=== PATIENT | male | born 1955 | race Caucasian/White ===

== ENCOUNTER 2020-05-29 00:10 | Inpatient (IN) | payer BC ==
[2020-05-29 01:09] LABS: Hemoglobin 15.2 g/dL (14.0-18.0); Mean Corpuscular HGB CONC 34.4 g/dL (32.0-36.0); Mean Corpuscular Hemoglobin 30.4 pg (27.0-31.0); Mean Corpuscular Volume 88.3 fL (78.0-98.0); Mean Platelet Volume 7.5 fL (7.4-10.4); Platelet Count 181 thou/uL (130-400); RBC Distribution Width 12.1 % (11.5-14.5); Red Blood Cell (RBC) Count 5.01 mill/uL (4.70-6.10); White Blood Cell (WBC) Count 16.2 thou/uL (4.8-10.8)
[2020-05-29] MEDS ORDERED: Acetaminophen 500 MG TAB ONE (01:13)
[2020-05-29 01:30] LABS: ALT (SGPT) 37 U/L (8-55); AST (SGOT) 35 U/L (5-34); Albumin 3.5 g/dL (3.4-4.8); Alkaline Phosphatase 58 U/L (40-110); Anion Gap 17 mmol/L (10-20); BUN (Urea Nitrogen) 22 mg/dL (8.4-25.7); Bilirubin, Total 0.5 mg/dL (0.2-1.2); Calc. Creatinine Clearance 0 mL/min (70-130); Calcium 8.4 mg/dL (7.8-10.44); Carbon Dioxide 21 mmol/L (23-31); Chloride 100 mmol/L (98-107); Globulin 3.4 g/dL (2.4-3.5); Glucose 165 mg/dL (80-115); Potassium 4.3 mmol/L (3.5-5.1); Protein, Total 6.9 g/dL (5.8-8.1); Sodium 134 mmol/L (136-145)
[2020-05-29 01:32] LABS: Band 19 % (5-11); MDiff Complete? YES; Monocytes 4 % (0-10); Neutrophil 77 % (42-75); Platelet Morphology Comment Appears Adequate; RBC Morphology Normal
[2020-05-29] MEDS ORDERED: Bisacodyl 5 MG TAB PO PRN (03:21)
[2020-05-29] MEDS ORDERED: Ondansetron PF 4 MG/2 ML Vial IVP PRN (03:21)
[2020-05-29] MEDS ORDERED: Senokot S 8.6-50 MG TAB PO PRN (03:21)
[2020-05-29] MEDS ORDERED: Ondansetron ODT 4 MG TAB PO PRN (03:21)
[2020-05-29] MEDS ORDERED: Dextrose 5% in Water 1,000 ML IV PRN (03:28)
[2020-05-29] MEDS ORDERED: HumaLOG 300 UNITS/3 ML VIAL SC PRN ×2 (03:28)
[2020-05-29] MEDS ORDERED: Dextrose 50% Abboject 50 ML SYRINGE SLOW IVP PRN (03:28)
[2020-05-29 03:59] VITALS: BMI 30.3
--- NOTE | 2020-05-29 04:20 | HP ---
PCP: None. CHIEF COMPLAINT: Fever and chills. HISTORY OF PRESENT ILLNESS: The patient is a 65-year-old male with a past medical history significant for hypertension, diabetes type 2, and recent COVID diagnosis who presents to the emergency department as a transfer via EMS from a free- standing ER in [place]. The patient reports that he is originally diagnosed last Monday05/23/2020, with COVID pneumonia at [facility] here in [facility]. His original symptoms were loss of smell along with general fatigue. He reports that he started to develop fever, chills, body aches, and felt a little short of breath today, so he went to the local [facility] again. Apparently, he was told that he was "fine" and should just go home. The patient disagreed with that assessment, so he drove himself to [place] for a second opinion. There at a free-standing ER, the patient had a documented SpO2 saturation of 88% (one time) with stable vital signs. He had a CT of his chest which was negative for PE and consistent with ground-glass opacities representing COVID pneumonia. The patient was given steroids, remdesivir, monoclonal antibodies, Rocephin, azithromycin, and transferred to our facility for further care. The patient denies any chest pain, heart palpitations, or lightheadedness. He denies any abdominal pain, nausea, vomiting, or diarrhea. He denies any urinary symptoms. In our ER, the patient presented febrile with a temperature of 101.4 with normal blood pressure, pulse, respirations. He was 97% on room air. The patient had a documented WBC count of 16.2 and bandemia. Lactic acid 1.6. He will be admitted for further evaluation. PAST MEDICAL HISTORY: 1. Hypertension. 2. Diabetes type 2. PAST SURGICAL HISTORY: Left knee surgery. SOCIAL HISTORY: The patient lives with his family. Drinks alcohol socially. Has no history of tobacco or illicit drug use. He works as a salesman. He is independently functioning. FAMILY HISTORY: Noncontributory to this case. ALLERGIES: NO KNOWN DRUG ALLERGIES. HOME MEDICATIONS: 1. Invokana, unknown dose. 2. Albuterol inhaler. 3. Zofran, unknown dose p.r.n. 4. Prednisone, unknown dose. 5. Tessalon Perles, unknown dose. 6. Promethazine p.r.n., unknown dose. 7. Sudafed, unknown dose. REVIEW OF SYSTEMS: All review of systems are negative unless otherwise stated in the HPI. PHYSICAL EXAMINATION: VITAL SIGNS: Temperature 99.7, blood pressure 132/78, pulse 76, respirations 18, nonlabored, 98% on room air. CONSTITUTIONAL: The patient appears comfortable, nontoxic, able to speak in full sentences. Resting comfortably in the stretcher. HEAD: Atraumatic and normocephalic. EYES: PERRLA. Extraocular muscles intact. Sclerae nonicteric. ENT: Bilateral EACs are clear. Tympanic membranes intact. Nares are clear and patent. Oropharynx is clear. Uvula midline. Moist mucous membranes. No oral lesions. NECK: Full range of motion. No cervical spinous tenderness. No cervical adenopathy. RESPIRATORY/CHEST: Respirations even and nonlabored. Clear to auscultation. No rhonchi, wheezes, or rales. CARDIOVASCULAR: S1, S2 appreciated. No murmurs, rubs, or gallops. ABDOMEN: Soft, nontender, nondistended. Active bowel sounds. No guarding. No rigidity. No rebound tenderness. BACK: Full range of motion. No central spinous tenderness. No CVA tenderness. EXTREMITIES: Upper extremities; full range of motion, normal strength, sensation intact. Palpable radial pulses. Lower extremities; full range of motion, normal strength, sensation intact. Palpable pedal pulses. NEUROLOGIC: GCS of 15. No focal motor deficits. PSYCH: Denies SI/HI. A and O x4. LABS AND DIAGNOSTICS: The patient had a CTA of chest, which was negative for pulmonary embolism. There are ground-glass opacities consistent with COVID pneumonia. WBC 16.2, bands 19, lactic acid 1.6. IMPRESSION: 1. Acute respiratory failure with hypoxia. 2. Pneumonia due to COVID-19 virus. 3. Leukocytosis with bandemia. 4. Hypertension. 5. Diabetes type 2. PLAN: Upon assessment, the patient had stable vital signs and was 97% to 98% on room air. There was one documented SpO2 reading of 88% from the free-standing ER in [place]. In [place], the patient was given steroids, remdesivir, and a monoclonal antibody along with IV antibiotics. I discussed with the patient in great detail the indication for steroids and antivirals with COVID-19 pneumonia. We agreed to monitor him through the morning and see if he becomes hypoxic during his stay here. We will continue Rocephin and azithromycin. Isolation precautions. Consult Infectious Disease to determine further clinical course. Start zinc, vitamin C, and vitamin D. Supplemental oxygen as needed. We will check acute phase reactants. We will start moderate intermittent sliding scale along with Accu-Cheks a.c. and h.s. Lovenox for DVT prophylaxis. Pepcid for GI prophylaxis. Code status is full code. Discussed the case with the attending physician, Dr. Garcia. Job ID: [id number] MTDD
[2020-05-29 06:08] LABS: #Lymphocytes 0.8 thou/uL (1.20-3.40); #Monocytes 1.3 thou/uL (0.11-0.59); %Basophils 0.2 % (0.0-1.0); %Eosinophils 0.1 % (0.0-10.0); %Lymphocytes 5.4 % (21.0-51.0); %Monocytes 8.5 % (0.0-10.0); %Neutrophils 85.8 % (42.0-75.0); Mean Corpuscular HGB CONC 33.2 g/dL (32.0-36.0); Mean Corpuscular Hemoglobin 29.7 pg (27.0-31.0); Mean Corpuscular Volume 89.5 fL (78.0-98.0); Mean Platelet Volume 7.5 fL (7.4-10.4); Platelet Count 182 thou/uL (130-400); RBC Distribution Width 12.2 % (11.5-14.5); Red Blood Cell (RBC) Count 5.03 mill/uL (4.70-6.10); White Blood Cell (WBC) Count 15.1 thou/uL (4.8-10.8)
[2020-05-29 06:32] LABS: Anion Gap 16 mmol/L (10-20); BUN (Urea Nitrogen) 24 mg/dL (8.4-25.7); Calc. Creatinine Clearance 94 mL/min (70-130); Calcium 8.5 mg/dL (7.8-10.44); Carbon Dioxide 23 mmol/L (23-31); Chloride 100 mmol/L (98-107); Glucose 139 mg/dL (80-115); Potassium 4.3 mmol/L (3.5-5.1); Sodium 135 mmol/L (136-145)
[2020-05-29] MEDS: Ascorbic Acid 500 mg Chewable Tablet PO SCH (07:57)
[2020-05-29] MEDS: Cholecalciferol 1,000 UNITS (25 MCG) TAB PO SCH (07:57)
[2020-05-29] MEDS: Famotidine 20 MG TAB PO SCH ×2 (07:58→19:58)
[2020-05-29] MEDS: Enoxaparin Sodium 40 MG/0.4 ML SYRINGE SC SCH ×2 (07:58→19:58)
[2020-05-29] MEDS: Famotidine/PF 20 mg/2ml Vial SLOW IVP SCH ×2 (07:58→19:55)
[2020-05-29] MEDS: Zinc Sulfate 220 MG CAP PO SCH (07:58)
[2020-05-29 10:32] LABS: Bacteria/HPF None Seen HPF (None Seen); Bilirubin Negative (Negative); Blood, Urine 1+ (Negative); Clarity Clear (Clear); Glucose, Urine (Dipstick) Greater than 1000 mg/dL (Negative); Ketone, Urine 20 mg/dL (Negative); Leukocyte Negative Leu/uL (Negative); Nitrite Negative (Negative); Protein, Urine (Dipstick) 30 mg/dL (Neg-Trace); Specific Gravity, Urine 1.047 (1.002-1.036); Squamous Epithelial 0-3 HPF (0-3); Urobilinogen Normal mg/dL (Less than 2); WBC/HPF 0-3 HPF (0-3); pH, Urine 5.5 (5.0-9.0)
[2020-05-29] MEDS: cefTRIAXone\\ROCEPHIN 1 GM in Sodium Chloride 0.9% 100 ML IVPB SCH (11:16)
[2020-05-29] MEDS: Azithromycin 500 MG in Sodium Chloride 0.9% 250 ML 250 ML IVPB SCH (11:17)
--- NOTE | 2020-05-29 15:24 | PDOC.HOSPP ---
- Subjective Encounter Date: 05/29/20 Encounter Time: 10:10 Subjective: Patient is resting he has some cough ongoing otherwise he he is comfortable this morning. - Objective Vital Signs & Weight: Vital Signs (12 hours) Temp Pulse Resp BP BP Pulse Ox 05/29/20 11:52 98.0 F 63 20 142/76 H 92 L 05/29/20 08:10 97.6 F 60 18 118/70 92 L Weight Weight 249 lb 1.957 oz Result Diagrams: 05/29/20 05:54 05/29/20 05:54 Additional Labs: Accuchecks 05/29/20 06:20 POC Glucose 145 H Hospitalist ROS - Medication Medications: Active Medications Generic Name Dose Route Start Last Admin Trade Name Freq PRN Reason Stop Dose Admin Ascorbic Acid 1,000 mg 05/29/20 09:00 05/29/20 07:57 Ascorbic Acid 500 Mg Chewable Tablet PO 1,000 mg DAILY WILMER Administration Cholecalciferol 5,000 units 05/29/20 09:00 05/29/20 07:57 Cholecalciferol 1,000 Units (25 Mcg) Tab PO 5,000 units DAILY WILMER Administration Enoxaparin Sodium 40 mg 05/29/20 09:00 05/29/20 07:58 Enoxaparin Sodium 40 Mg/0.4 Ml Syringe SC 40 mg 899,2099 WILMER Administration Famotidine 20 mg 05/29/20 09:00 05/29/20 07:58 Famotidine 20 Mg Tab PO 20 mg BID WILMER Administration Famotidine 20 mg 05/29/20 09:00 05/29/20 07:58 Famotidine/Pf 20 Mg/2ml Vial SLOW IVP Not Given Q12HR WILMER Azithromycin 500 mg/ Sodium 250 mls @ 250 mls/hr 05/29/20 12:00 05/29/20 11:17 Chloride IVPB 250 mls Q24HR WILMER Administration Ceftriaxone Sodium 1 gm/ 100 mls @ 200 mls/hr 05/29/20 12:00 05/29/20 11:16 Sodium Chloride IVPB 100 mls Q24HR WILMER Administration Zinc Sulfate 220 mg 05/29/20 09:00 05/29/20 07:58 Zinc Sulfate 220 Mg Cap PO 220 mg DAILY WILMER Administration - Exam General Appearance: NAD, awake alert Eye: PERRL ENT: normocephalic atraumatic Neck: supple Heart: RRR, normal peripheral pulses Respiratory: CTAB, normal chest expansion Gastrointestinal: soft, normal bowel sounds Psychiatric: A&O x 3 Hosp A/P - Plan COVID-pneumonia -Hypoxia with acute respiratory failure secondary to Covid pneumonia Continue with the Decadron vitamin C and daily as well as Lovenox. Ceftriaxone and Zithromax. --Inflammatory markers are still on the high end. --Sats are still on the low end with a 92% Leukocytosis -Likely due to above Diabetes mellitus '-Sliding scale insulin.
[2020-05-29] MEDS: Guaifenesin DM 100-10/5 ML UDCUP PO PRN ×2 (17:41→23:16)
[2020-05-29] MEDS ORDERED: REMDESIVIR (EUA) 200 MG in Sodium Chloride 0.9% 250 ML 210 ML IV SCH (18:00)
[2020-05-29] MEDS: REMDESIVIR (EUA) 100 MG in Sodium Chloride 0.9% 250 ML 230 ML IV SCH (18:35)
[2020-05-30] MEDS ORDERED: Albuterol 200 PUFF (6.7GM INHALER) INH PRN (05:30)
[2020-05-30] MEDS: Albuterol 200 PUFF (6.7GM INHALER) INH SCH ×5 (06:02→22:17)
[2020-05-30] MEDS: Zinc Sulfate 220 MG CAP PO SCH (09:00)
[2020-05-30] MEDS: Famotidine/PF 20 mg/2ml Vial SLOW IVP SCH (09:00)
[2020-05-30] MEDS: Famotidine 20 MG TAB PO SCH ×2 (09:01→19:48)
[2020-05-30] MEDS: Enoxaparin Sodium 40 MG/0.4 ML SYRINGE SC SCH ×2 (09:01→19:48)
[2020-05-30] MEDS: Cholecalciferol 1,000 UNITS (25 MCG) TAB PO SCH (09:01)
[2020-05-30] MEDS: Ascorbic Acid 500 mg Chewable Tablet PO SCH (09:01)
[2020-05-30] MEDS: Azithromycin 500 MG in Sodium Chloride 0.9% 250 ML 250 ML IVPB SCH (12:04)
[2020-05-30] MEDS: cefTRIAXone\\ROCEPHIN 1 GM in Sodium Chloride 0.9% 100 ML IVPB SCH (12:04)
[2020-05-30] MEDS: Guaifenesin DM 100-10/5 ML UDCUP PO PRN ×3 (15:29→23:41)
[2020-05-30] MEDS: REMDESIVIR (EUA) 100 MG in Sodium Chloride 0.9% 250 ML 230 ML IV SCH (17:37)
[2020-05-30] MEDS ORDERED: REMDESIVIR (EUA) 100 MG in Sodium Chloride 0.9% 250 ML 230 ML IV SCH (18:00)
--- NOTE | 2020-05-30 18:23 | PDOC.HOSPP ---
- Subjective Encounter Date: 05/30/20 Encounter Time: 18:20 Subjective: f/u for COVID PNA on O2 @ 3L/min NC/Rocephin/Zithromax/Vit C/Zinc/Albuterol/Remdesivir. Still weak and coughing. - Objective Vital Signs & Weight: Vital Signs (12 hours) Temp Pulse Resp BP BP Pulse Ox 05/30/20 16:13 98.5 F 73 18 151/77 H 91 L 05/30/20 11:44 98.3 F 68 18 157/76 H 92 L 05/30/20 08:25 94 L 05/30/20 08:00 98 F 62 18 160/80 H 93 L 05/30/20 07:28 98.2 F 62 18 160/80 H 90 L Weight Weight 249 lb 1.9 oz I&O: 05/29/20 05/30/20 05/31/20 06:59 06:59 06:59 Intake Total 2079 Balance 2079 Result Diagrams: 05/29/20 05:54 05/29/20 05:54 Additional Labs: Accuchecks 05/30/20 05/29/20 04:47 19:57 POC Glucose 134 H 142 H Microbiology 05/29/20 00:55 Venous blood - Right Arm Blood Culture - Preliminary Specimen has been received and culture in progress. No Growth to date. 05/29/20 00:55 Venous blood - Left Hand Blood Culture - Preliminary Specimen has been received and culture in progress. No Growth to date. Laboratory Tests 05/29/20 05/29/20 05/29/20 00:55 05:54 05:54 WBC 16.2 H Neutrophils % 85.8 H Neutrophils % (Manual) 77 H D-Dimer Ferritin C-Reactive Protein 22.99 H 05/29/20 05/29/20 05:54 05:54 WBC Neutrophils % Neutrophils % (Manual) D-Dimer 1.01 H Ferritin 548.41 H C-Reactive Protein Hospitalist ROS - Medication Medications: Active Medications Generic Name Dose Route Start Last Admin Trade Name Freq PRN Reason Stop Dose Admin Albuterol Sulfate 2 puff 05/30/20 06:30 05/30/20 17:15 Albuterol 200 Puff (6.7gm Inhaler) INH 2 puff [id number] WILMER Administration Ascorbic Acid 1,000 mg 05/29/20 09:00 05/30/20 09:01 Ascorbic Acid 500 Mg Chewable Tablet PO 1,000 mg DAILY WILMER Administration Cholecalciferol 5,000 units 05/29/20 09:00 05/30/20 09:01 Cholecalciferol 1,000 Units (25 Mcg) Tab PO 5,000 units DAILY WILMER Administration Enoxaparin Sodium 40 mg 05/29/20 09:00 05/30/20 09:01 Enoxaparin Sodium 40 Mg/0.4 Ml Syringe SC 40 mg 899,2099 WILMER Administration Famotidine 20 mg 05/29/20 09:00 05/30/20 09:01 Famotidine 20 Mg Tab PO 20 mg BID WILMER Administration Famotidine 20 mg 05/29/20 09:00 05/30/20 09:00 Famotidine/Pf 20 Mg/2ml Vial SLOW IVP Not Given Q12HR WILMER Guaifenesin/Dextromethorphan 15 ml 05/29/20 03:21 05/30/20 15:29 Guaifenesin Dm 100-10/5 Ml Udcup PO 15 ml Q4H PRN Administration Cough Azithromycin 500 mg/ Sodium 250 mls @ 250 mls/hr 05/29/20 12:00 05/30/20 12:04 Chloride IVPB 250 mls Q24HR WILMER Administration Ceftriaxone Sodium 1 gm/ 100 mls @ 200 mls/hr 05/29/20 12:00 05/30/20 12:04 Sodium Chloride IVPB 100 mls Q24HR WILMER Administration Remdesivir 100 mg/ Sodium 250 mls @ 250 mls/hr 05/29/20 18:00 05/30/20 17:37 Chloride IV 06/01/20 18:59 250 mls 1800 WILMER Administration Zinc Sulfate 220 mg 05/29/20 09:00 05/30/20 09:00 Zinc Sulfate 220 Mg Cap PO 220 mg DAILY WILMER Administration - Exam General Appearance: NAD, awake alert Eye: PERRL, anicteric sclera ENT: normocephalic atraumatic, no oropharyngeal lesions Neck: supple, symmetric, no JVD, no thyromegaly Heart: RRR, no murmur, no gallops, no rubs, normal peripheral pulses Heart - other findings: S1, S2 Respiratory: tachypneic Respiratory - other findings: few scattered rhonchi Gastrointestinal: soft, non-tender, non-distended, normal bowel sounds, no palpable masses, no hepatomegaly Extremities: no cyanosis, no clubbing, no edema Skin: normal turgor, no lesions Neurological: cranial nerve grossly intact, no new deficit Musculoskeletal: normal tone, normal strength, no muscle wasting Psychiatric: normal affect, A&O x 3 Hosp A/P (1) Pneumonia due to COVID-19 virus Code(s): U07.1 - COVID-19; J12.89 - OTHER VIRAL PNEUMONIA Status: Acute Plan: Continue Rocephin/Zithromax/Dexamethasone/Vit C/Zinc/O2 supplementation/Lovenox (2) Acute respiratory failure with hypoxia Code(s): J96.01 - ACUTE RESPIRATORY FAILURE WITH HYPOXIA Status: Acute Plan: Continue O2 supplementation, may need home O2 (3) DM II (diabetes mellitus, type II), controlled Code(s): E11.9 - TYPE 2 DIABETES MELLITUS WITHOUT COMPLICATIONS Status: Chronic Plan: Resume home DM regimen, ISS, ADA, serial accuchecks (4) HTN (hypertension) Code(s): I10 - ESSENTIAL (PRIMARY) HYPERTENSION Status: Chronic Qualifiers: Hypertension type: essential hypertension Qualified Code(s): I10 - Essent ial (primary) hypertension Plan: Resume home BP regimen, serial monitoring - Plan plan discussed w/ family, continue antibiotics, respiratory therapy, out of bed/ambulate, DVT proph w/SCDs Stable currently Continue Rocephin/Zithromax Add Dexamethasone 8mg IV daily O2 supplementation, may need home O2 Add Florastor 250mg daily Continue Albuterol MDI AM lab: Ferritin, CRP, D-dimer
[2020-05-30] MEDS ORDERED: Zolpidem Tartrate 5 MG TAB PO PRN (19:00)
[2020-05-30] MEDS ORDERED: Dexamethasone 4 mg/ml Vial SLOW IVP SCH (19:15)
[2020-05-31] MEDS: Benzonatate 100 MG CAP PO PRN ×4 (01:00→20:12)
[2020-05-31] MEDS: Albuterol 200 PUFF (6.7GM INHALER) INH SCH ×6 (01:46→22:41)
[2020-05-31] MEDS: Guaifenesin DM 100-10/5 ML UDCUP PO PRN ×3 (05:23→20:12)
[2020-05-31] MEDS: metFORMIN 500 MG TAB PO SCH (07:56)
[2020-05-31] MEDS: Alogliptin 25 MG TAB PO SCH (07:56)
[2020-05-31] MEDS: Ascorbic Acid 500 mg Chewable Tablet PO SCH (07:57)
[2020-05-31] MEDS: Empagliflozin 10 MG TAB PO SCH (07:57)
[2020-05-31] MEDS: Ramipril 5 MG CAP PO SCH (07:57)
[2020-05-31] MEDS: Cholecalciferol 1,000 UNITS (25 MCG) TAB PO SCH (07:57)
[2020-05-31] MEDS: Dexamethasone 4 mg/ml Vial SLOW IVP SCH (07:58)
[2020-05-31] MEDS: Zinc Sulfate 220 MG CAP PO SCH (07:58)
[2020-05-31] MEDS: Famotidine 20 MG TAB PO SCH ×2 (07:58→20:12)
[2020-05-31] MEDS: Enoxaparin Sodium 40 MG/0.4 ML SYRINGE SC SCH ×2 (07:58→20:12)
[2020-05-31] MEDS: Saccharomyces boulardii 250 MG CAP PO SCH (07:58)
[2020-05-31] MEDS ORDERED: Rosuvastatin 20 MG TAB PO SCH (09:00)
[2020-05-31] MEDS: cefTRIAXone\\ROCEPHIN 1 GM in Sodium Chloride 0.9% 100 ML IVPB SCH (12:18)
[2020-05-31] MEDS: Azithromycin 500 MG in Sodium Chloride 0.9% 250 ML 250 ML IVPB SCH (12:51)
--- NOTE | 2020-05-31 13:27 | PDOC.HOSPP ---
- Subjective Encounter Date: 05/31/20 Encounter Time: 13:25 Subjective: f/u COVID PNA receiving O2 2-3L/min NC/Remdesivir/Zithromax/Rocephin/Vit C/Zinc/Lovenox/Albuterol. SOB with mild activity. - Objective Vital Signs & Weight: Vital Signs (12 hours) Temp Pulse Resp BP BP 05/31/20 11:24 97.7 F 63 18 126/75 05/31/20 07:57 160/80 H 05/31/20 07:21 97.7 F 60 18 178/90 H Weight Weight 249 lb 1.9 oz I&O: 05/30/20 05/31/20 06/01/20 06:59 06:59 06:59 Intake Total 2079 Balance 2079 Result Diagrams: 05/29/20 05:54 05/29/20 05:54 Additional Labs: Accuchecks 05/31/20 05/30/20 05/30/20 05:28 22:04 19:57 POC Glucose 220 H 208 H 194 H Microbiology 05/29/20 00:55 Venous blood - Right Arm Blood Culture - Preliminary Specimen has been received and culture in progress. No Growth to date. 05/29/20 00:55 Venous blood - Left Hand Blood Culture - Preliminary Specimen has been received and culture in progress. No Growth to date. Laboratory Tests 05/29/20 05/29/20 05/29/20 00:55 05:54 05:54 WBC 16.2 H Neutrophils % 85.8 H Neutrophils % (Manual) 77 H D-Dimer Ferritin C-Reactive Protein 22.99 H 05/29/20 05/29/20 05/31/20 05:54 05:54 05:45 WBC Neutrophils % Neutrophils % (Manual) D-Dimer 1.01 H Ferritin 548.41 H 857.81 H C-Reactive Protein 05/31/20 05/31/20 05:45 05:46 WBC Neutrophils % Neutrophils % (Manual) D-Dimer 0.91 H Ferritin C-Reactive Protein 21.60 H Hospitalist ROS - Medication Medications: Active Medications Generic Name Dose Route Start Last Admin Trade Name Freq PRN Reason Stop Dose Admin Albuterol Sulfate 2 puff 05/30/20 06:30 05/31/20 09:39 Albuterol 200 Puff (6.7gm Inhaler) INH 2 puff [id number] WILMER Administration Alogliptin Benzoate 25 mg 05/31/20 09:00 05/31/20 07:56 Alogliptin 25 Mg Tab PO 25 mg DAILY WILMER Administration Ascorbic Acid 1,000 mg 05/29/20 09:00 05/31/20 07:57 Ascorbic Acid 500 Mg Chewable Tablet PO 1,000 mg DAILY WILMER Administration Benzonatate 100 mg 05/31/20 00:54 05/31/20 12:18 Benzonatate 100 Mg Cap PO 100 mg Q6H PRN Administration Cough Cholecalciferol 5,000 units 05/29/20 09:00 05/31/20 07:57 Cholecalciferol 1,000 Units (25 Mcg) Tab PO 5,000 units DAILY WILMER Administration Dexamethasone 8 mg 05/31/20 09:00 05/31/20 07:58 Dexamethasone 4 Mg/Ml Vial SLOW IVP 8 mg DAILY WILMER Administration Enoxaparin Sodium 40 mg 05/29/20 09:00 05/31/20 07:58 Enoxaparin Sodium 40 Mg/0.4 Ml Syringe SC 40 mg 899,2099 WILMER Administration Famotidine 20 mg 05/29/20 09:00 05/31/20 07:58 Famotidine 20 Mg Tab PO 20 mg BID WILMER Administration Guaifenesin/Dextromethorphan 15 ml 05/29/20 03:21 05/31/20 13:19 Guaifenesin Dm 100-10/5 Ml Udcup PO 15 ml Q4H PRN Administration Cough Azithromycin 500 mg/ Sodium 250 mls @ 250 mls/hr 05/29/20 12:00 05/31/20 12:51 Chloride IVPB 250 mls Q24HR WILMER Administration Ceftriaxone Sodium 1 gm/ 100 mls @ 200 mls/hr 05/29/20 12:00 05/31/20 12:18 Sodium Chloride IVPB 100 mls Q24HR WILMER Administration Remdesivir 100 mg/ Sodium 250 mls @ 250 mls/hr 05/29/20 18:00 05/30/20 17:37 Chloride IV 06/01/20 18:59 250 mls 1800 WILMER Administration Insulin Human Lispro 0 units 05/29/20 03:28 05/31/20 05:52 Humalog 300 Units/3 Ml Vial SC 4 unit .MODERATE SLIDING SC PRN Administration Moderate Correctional Scale Metformin HCl 2,000 mg 05/31/20 08:00 05/31/20 07:56 Metformin 500 Mg Tab PO 2,000 mg QAM-WM WILMER Administration Miscellaneous Medication 10 mg 05/31/20 09:00 05/31/20 07:57 Empagliflozin 10 Mg Tab PO 10 mg DAILY WILMER Administration Ramipril 10 mg 05/31/20 09:00 05/31/20 07:57 Ramipril 5 Mg Cap PO 10 mg DAILY WILMER Administration Saccharomyces Boulardii 250 mg 05/31/20 09:00 05/31/20 07:58 Saccharomyces Boulardii 250 Mg Cap PO 250 mg DAILY WILMER Administration Zinc Sulfate 220 mg 05/29/20 09:00 05/31/20 07:58 Zinc Sulfate 220 Mg Cap PO 220 mg DAILY WILMER Administration Zolpidem Tartrate 5 mg 05/30/20 19:00 05/30/20 23:42 Zolpidem Tartrate 5 Mg Tab PO 5 mg HSPRN PRN Administration Insomnia - Exam General Appearance: NAD, awake alert Eye: PERRL, anicteric sclera ENT: normocephalic atraumatic, no oropharyngeal lesions Neck: supple, symmetric, no JVD, no thyromegaly, no lymphadenopathy Heart: RRR, no murmur, no gallops, no rubs, normal peripheral pulses Heart - other findings: S1, S2 Respiratory: no tachypnea Respiratory - other findings: few scattered rhonchi Gastrointestinal: soft, non-tender, non-distended, normal bowel sounds, no palpable masses Extremities: no cyanosis, no clubbing, no edema Skin: normal turgor, no lesions Neurological: cranial nerve grossly intact, no new deficit Musculoskeletal: normal tone, normal strength, no muscle wasting Psychiatric: normal affect, A&O x 3 Hosp A/P (1) Pneumonia due to COVID-19 virus Code(s): U07.1 - COVID-19; J12.89 - OTHER VIRAL PNEUMONIA Status: Acute Plan: Continue Remdesivir/Zithromax/Rocephin/Dexamethasone/Lovenox/Vit C/Zinc (2) Acute respiratory failure with hypoxia Code(s): J96.01 - ACUTE RESPIRATORY FAILURE WITH HYPOXIA Status: Acute Plan: Continue O2 supplementation, may need home O2 (3) DM II (diabetes mellitus, type II), controlled Code(s): E11.9 - TYPE 2 DIABETES MELLITUS WITHOUT COMPLICATIONS Status: Chronic Plan: ISS, continue home DM regimen, ADA (4) HTN (hypertension) Code(s): I10 - ESSENTIAL (PRIMARY) HYPERTENSION Status: Chronic Qualifiers: Hypertension type: essential hypertension Qualified Code(s): I10 - Essent ial (primary) hypertension - Plan continue antibiotics, social science research assistant, respiratory therapy, out of bed/ambulate, DVT proph w/SCDs Stable currently Continue Rocephin/Zithromax Add Dexamethasone 8mg IV daily O2 supplementation, may need home O2 Add Florastor 250mg daily Continue Albuterol MDI AM lab: Ferritin, CRP, D-dimer
[2020-05-31] MEDS ORDERED: Promethazine DM 6.25-15mg/5ml 120 ML BOT PO PRN (14:23)
[2020-05-31] MEDS ORDERED: Ibuprofen 200 MG TAB PO PRN (17:11)
[2020-05-31] MEDS: REMDESIVIR (EUA) 100 MG in Sodium Chloride 0.9% 250 ML 230 ML IV SCH (19:47)
[2020-06-01] MEDS: Guaifenesin DM 100-10/5 ML UDCUP PO PRN ×5 (01:10→21:45)
[2020-06-01] MEDS: Albuterol 200 PUFF (6.7GM INHALER) INH SCH ×6 (01:20→21:36)
[2020-06-01] MEDS: Benzonatate 100 MG CAP PO PRN ×3 (05:16→19:04)
[2020-06-01] MEDS: Enoxaparin Sodium 40 MG/0.4 ML SYRINGE SC SCH ×2 (08:50→21:35)
[2020-06-01] MEDS: Empagliflozin 10 MG TAB PO SCH (08:50)
[2020-06-01] MEDS: Ramipril 5 MG CAP PO SCH (08:50)
[2020-06-01] MEDS: Alogliptin 25 MG TAB PO SCH (08:51)
[2020-06-01] MEDS: metFORMIN 500 MG TAB PO SCH (08:51)
[2020-06-01] MEDS: Famotidine 20 MG TAB PO SCH ×2 (08:51→21:35)
[2020-06-01] MEDS: Saccharomyces boulardii 250 MG CAP PO SCH (08:51)
[2020-06-01] MEDS: Cholecalciferol 1,000 UNITS (25 MCG) TAB PO SCH (08:51)
[2020-06-01] MEDS: Dexamethasone 4 mg/ml Vial SLOW IVP SCH (08:52)
[2020-06-01] MEDS: Zinc Sulfate 220 MG CAP PO SCH (08:52)
[2020-06-01] MEDS: Ascorbic Acid 500 mg Chewable Tablet PO SCH (08:52)
[2020-06-01] MEDS: Azithromycin 500 MG in Sodium Chloride 0.9% 250 ML 250 ML IVPB SCH (11:42)
[2020-06-01] MEDS: cefTRIAXone\\ROCEPHIN 1 GM in Sodium Chloride 0.9% 100 ML IVPB SCH (13:08)
--- NOTE | 2020-06-01 15:42 | PDOC.HOSPP ---
- Subjective Encounter Date: 06/01/20 Encounter Time: 15:40 Subjective: f/u for COVID PNA with hypoxic resp failure on 3-4L/min NC. Receiving Zithromax/Rocephin/Lovenox/Dexamethasone/Albuterol/Vit C/Zinc. - Objective Vital Signs & Weight: Vital Signs (12 hours) Temp Pulse Resp BP BP Pulse Ox 06/01/20 12:00 98.1 F 73 20 126/72 96 06/01/20 08:00 97.8 F 70 18 153/81 H 93 L 06/01/20 05:00 97.9 F 69 20 145/82 H 93 L Weight Weight 249 lb 1.9 oz I&O: 05/31/20 06/01/20 06/02/20 06:59 06:59 06:59 Intake Total 240 Balance 240 Result Diagrams: 05/29/20 05:54 05/29/20 05:54 Additional Labs: Accuchecks 06/01/20 06/01/20 05/31/20 11:53 05:06 19:55 POC Glucose 166 H 161 H 185 H 05/31/20 05/31/20 05/30/20 16:14 11:23 16:16 POC Glucose 159 H 162 H 143 H 05/30/20 05/29/20 05/29/20 11:43 16:54 10:34 POC Glucose 161 H 109 H 160 H Microbiology 05/29/20 00:55 Venous blood - Right Arm Blood Culture - Preliminary Specimen has been received and culture in progres s. No Growth to date. 05/29/20 00:55 Venous blood - Left Hand Blood Culture - Preliminary Specimen has been received and culture in prog ress. No Growth to date. Laboratory Tests 05/29/20 05/29/20 05/29/20 00:55 05:54 05:54 WBC 16.2 H Neutrophils % 85.8 H Neutrophils % (Manual) 77 H D-Dimer Ferritin C-Reactive Protein 22.99 H 05/29/20 05/29/20 05/31/20 05:54 05:54 05:45 WBC Neutrophils % Neutrophils % (Manual) D-Dimer 1.01 H Ferritin 548.41 H 857.81 H C-Reactive Protein 05/31/20 05/31/20 06/01/20 05:45 05:46 06:22 WBC Neutrophils % Neutrophils % (Manual) D-Dimer 0.91 H Ferritin C-Reactive Protein 21.60 H 13.16 H 06/01/20 06/01/20 06:22 06:22 WBC Neutrophils % Neutrophils % (Manual) D-Dimer 1.15 H Ferritin 769.07 H C-Reactive Protein Hospitalist ROS - Medication Medications: Active Medications Generic Name Dose Route Start Last Admin Trade Name Freq PRN Reason Stop Dose Admin Albuterol Sulfate 2 puff 05/30/20 06:30 06/01/20 14:13 Albuterol 200 Puff (6.7gm Inhaler) INH 2 puff [id number] WILMER Administration Alogliptin Benzoate 25 mg 05/31/20 09:00 06/01/20 08:51 Alogliptin 25 Mg Tab PO 25 mg DAILY WILMER Administration Ascorbic Acid 1,000 mg 05/29/20 09:00 06/01/20 08:52 Ascorbic Acid 500 Mg Chewable Tablet PO 1,000 mg DAILY WILMER Administration Benzonatate 100 mg 05/31/20 00:54 06/01/20 11:44 Benzonatate 100 Mg Cap PO 100 mg Q6H PRN Administration Cough Cholecalciferol 5,000 units 05/29/20 09:00 06/01/20 08:51 Cholecalciferol 1,000 Units (25 Mcg) Tab PO 5,000 units DAILY WILMER Administration Dexamethasone 8 mg 05/31/20 09:00 06/01/20 08:52 Dexamethasone 4 Mg/Ml Vial SLOW IVP 8 mg DAILY WILMER Administration Enoxaparin Sodium 40 mg 05/29/20 09:00 06/01/20 08:50 Enoxaparin Sodium 40 Mg/0.4 Ml Syringe SC 40 mg 09,2099 WILMER Administration Famotidine 20 mg 05/29/20 09:00 06/01/20 08:51 Famotidine 20 Mg Tab PO 20 mg BID WILMER Administration Guaifenesin/Dextromethorphan 15 ml 05/29/20 03:21 06/01/20 14:37 Guaifenesin Dm 100-10/5 Ml Udcup PO 15 ml Q4H PRN Administration Cough Azithromycin 500 mg/ Sodium 250 mls @ 250 mls/hr 05/29/20 12:00 06/01/20 11:42 Chloride IVPB 250 mls Q24HR WILMER Administration Ceftriaxone Sodium 1 gm/ 100 mls @ 200 mls/hr 05/29/20 12:00 06/01/20 13:08 Sodium Chloride IVPB 100 mls Q24HR WILMER Administration Remdesivir 100 mg/ Sodium 250 mls @ 250 mls/hr 05/29/20 18:00 05/31/20 19:47 Chloride IV 06/01/20 18:59 250 mls 1800 WILMER Administration Ibuprofen 600 mg 05/31/20 17:11 05/31/20 17:23 Ibuprofen 200 Mg Tab PO 600 mg Q6H PRN Administration PAIN OR HEADACHE Insulin Human Lispro 0 units 05/29/20 03:28 05/31/20 05:52 Humalog 300 Units/3 Ml Vial SC 4 unit .MODERATE SLIDING SC PRN Administration Moderate Correctional Scale Metformin HCl 2,000 mg 05/31/20 08:00 06/01/20 08:51 Metformin 500 Mg Tab PO 2,000 mg QAM-WM WILMER Administration Miscellaneous Medication 10 mg 05/31/20 09:00 06/01/20 08:50 Empagliflozin 10 Mg Tab PO 10 mg DAILY WILMER Administration Ramipril 10 mg 05/31/20 09:00 06/01/20 08:50 Ramipril 5 Mg Cap PO 10 mg DAILY WILMER Administration Saccharomyces Boulardii 250 mg 05/31/20 09:00 06/01/20 08:51 Saccharomyces Boulardii 250 Mg Cap PO 250 mg DAILY WILMER Administration Sodium Chloride 10 ml 05/29/20 03:21 05/31/20 19:47 Flush - Normal Saline 10 Ml Syringe IVF 10 ml PRN PRN Administration Saline Flush Zinc Sulfate 220 mg 05/29/20 09:00 06/01/20 08:52 Zinc Sulfate 220 Mg Cap PO 220 mg DAILY WILMER Administration Zolpidem Tartrate 5 mg 05/30/20 19:00 05/30/20 23:42 Zolpidem Tartrate 5 Mg Tab PO 5 mg HSPRN PRN Administration Insomnia - Exam General Appearance: NAD, awake alert Eye: PERRL, anicteric sclera ENT: normocephalic atraumatic, no oropharyngeal lesions Neck: supple, symmetric, no JVD, no thyromegaly, no lymphadenopathy Heart: RRR, no gallops, no rubs, normal peripheral pulses Heart - other findings: S1, S2 Respiratory: no wheezes, tachypneic Respiratory - other findings: scattered rhonchi Gastrointestinal: soft, non-tender, non-distended, normal bowel sounds, no palpable masses Extremities: no cyanosis, no clubbing, no edema Skin: normal turgor, no lesions Neurological: cranial nerve grossly intact, no new deficit Musculoskeletal: normal tone, normal strength, no muscle wasting Psychiatric: normal affect, A&O x 3 Hosp A/P (1) Pneumonia due to COVID-19 virus Code(s): U07.1 - COVID-19; J12.89 - OTHER VIRAL PNEUMONIA Status: Acute Plan: Continue Rocephin/Zithromax/Dexamethasone/Remdesivir/Vit C/Zinc/O2 (2) Acute respiratory failure with hypoxia Code(s): J96.01 - ACUTE RESPIRATORY FAILURE WITH HYPOXIA Status: Acute Plan: Continue O2, likely will need home O2 (3) DM II (diabetes mellitus, type II), controlled Code(s): E11.9 - TYPE 2 DIABETES MELLITUS WITHOUT COMPLICATIONS Status: Chronic (4) HTN (hypertension) Code(s): I10 - ESSENTIAL (PRIMARY) HYPERTENSION Status: Chronic Qualifiers: Hypertension type: essential hypertension Qualified Code(s): I10 - Essential (primary) hypertension - Plan continue antibiotics, social media content specialist, respiratory therapy, out of bed/ambulate, DVT proph w/SCDs Stable currently Continue Rocephin/Zithromax Continue Dexamethasone 8mg IV daily O2 supplementation, may need home O2 Add Florastor 250mg daily Continue Albuterol MDI AM lab: Ferritin, CRP, D-dimer
[2020-06-01] MEDS: REMDESIVIR (EUA) 100 MG in Sodium Chloride 0.9% 250 ML 230 ML IV SCH (17:30)
[2020-06-01] MEDS: Rosuvastatin 20 MG TAB PO SCH (21:35)
[2020-06-01] MEDS ORDERED: Promethazine HCl 6.25 MG/5 ML Syrup PO PRN (21:50)
[2020-06-01] MEDS ORDERED: Dextromethorphan Polistirex 30 MG/5 ML (89 ML BOTTLE) PO PRN (21:51)
[2020-06-02] MEDS: Albuterol 200 PUFF (6.7GM INHALER) INH SCH ×6 (03:15→23:41)
[2020-06-02] MEDS: Cholecalciferol 1,000 UNITS (25 MCG) TAB PO SCH (09:05)
[2020-06-02] MEDS: Enoxaparin Sodium 40 MG/0.4 ML SYRINGE SC SCH ×2 (09:05→20:17)
[2020-06-02] MEDS: Zinc Sulfate 220 MG CAP PO SCH (09:05)
[2020-06-02] MEDS: Empagliflozin 10 MG TAB PO SCH (09:06)
[2020-06-02] MEDS: Ramipril 5 MG CAP PO SCH (09:06)
[2020-06-02] MEDS: metFORMIN 500 MG TAB PO SCH (09:06)
[2020-06-02] MEDS: Saccharomyces boulardii 250 MG CAP PO SCH (09:06)
[2020-06-02] MEDS: Famotidine 20 MG TAB PO SCH ×2 (09:06→20:17)
[2020-06-02] MEDS: Ascorbic Acid 500 mg Chewable Tablet PO SCH (09:07)
[2020-06-02] MEDS: Alogliptin 25 MG TAB PO SCH (09:07)
[2020-06-02] MEDS: Dexamethasone 4 mg/ml Vial SLOW IVP SCH (09:07)
[2020-06-02] MEDS: Guaifenesin DM 100-10/5 ML UDCUP PO PRN ×2 (09:07→20:18)
[2020-06-02] MEDS: Benzonatate 100 MG CAP PO PRN ×2 (09:19→18:18)
[2020-06-02] MEDS: cefTRIAXone\\ROCEPHIN 1 GM in Sodium Chloride 0.9% 100 ML IVPB SCH (11:55)
[2020-06-02] MEDS: Acetaminophen 325 MG TAB PO PRN ×2 (11:55→20:18)
[2020-06-02] MEDS: Azithromycin 500 MG in Sodium Chloride 0.9% 250 ML 250 ML IVPB SCH (12:59)
--- NOTE | 2020-06-02 15:05 | PQF ---
CLINICAL DOCUMENTATION CLARIFICATION FORM: Dear Dr. JAMES CHIN Date / Time: 06-02-20 Please exercise your independent, professional judgment in responding to the clarification form. Clinical indicators are provided on the bottom of this form for your review. Please check appropriate box(es): [ ] Sepsis due to: [ ] Severe sepsis with associated acute organ dysfunction: [ ] Acute Respiratory Failure [ ] Additional/Other: please specify: [ x ] Localized infection without sepsis [ ] Other diagnosis [ ] Unable to determine In addition, please specify: Present on Admission (POA): [ x ] Yes [ ] No [ ] Unable to determine For continuity of documentation, please document condition throughout progress notes and discharge summary. Thank You. To be completed by CDI/Coding staff for physician review: CLINICAL INDICATORS - SIGNS / SYMPTOMS / LABS / RESULTS AND LOCATION IN MR: H&P: 05-31-20: HX HTN, DM 2, RECENT COVID DIAGNOSIS, DIAGNOSED LAST MONDAY WITH COVID PNEUMONIA AT [facility] IN [facility], PATIENT PRESENTED FEBRILE WITH TEMP OF 101.4 WITH NORMAL BLOOD PRESSURE, PULSE, RESP. DOCUMENTED WBC COUNT OF 16.2 AND BANDEMIA/ LACTID ACID 1.6 H&P 06-02-20: ACUTE RESPIRATORY FAILURE WITH HYPOXIA, PNEUMONIA DUE TO COVID 19 VIRUS, LEUKOCYTOSIS WITH BANDEMIA WBC: 05-29-20: 16.2, 15.1 BANDS: 05-29-20: 19% CRP: 05-29-20: 22.99 RISK FACTORS / RESULTS AND LOCATION IN MR: H&P 06-02-20: ACUTE RESPIRATORY FAILURE WITH HYPOXIA, PNEUMONIA DUE TO COVID 19 VIRUS, LEUKOCYTOSIS WITH BANDEMIA TREATMENTS / RESULTS AND LOCATION IN MR: MAR: 05-29-20: ZITHROMAX IV, ROCEPHIN IV CDS Signature: Debra Szymanski Phone #: [phone] Date: 06-02-20 This is a permanent part of the Medical Record [facility]
--- NOTE | 2020-06-02 17:52 | PDOC.HOSPP ---
- Subjective Encounter Date: 06/02/20 Encounter Time: 17:45 Subjective: f/u for COVID PNA/hypoxic resp failure on current Zithromax/Rocephin/Dexamethasone/Remdesivir/Vit C/Zinc/O2 @ 3L/min NC. - Objective Vital Signs & Weight: Vital Signs (12 hours) Temp Pulse Resp BP Pulse Ox 06/02/20 16:56 98.5 F 95 06/02/20 13:29 98.5 F 06/02/20 11:55 100.1 F H 06/02/20 09:01 99.2 F 79 20 138/77 91 L 06/02/20 09:00 91 L Weight Weight 249 lb 1.9 oz I&O: 06/01/20 06/02/20 06/03/20 06:59 06:59 06:59 Intake Total 240 Balance 240 Result Diagrams: 05/29/20 05:54 05/29/20 05:54 Additional Labs: Accuchecks 06/02/20 06/02/20 06/01/20 16:10 04:26 19:44 POC Glucose 177 H 135 H 194 H 06/01/20 17:02 POC Glucose 164 H Microbiology 05/29/20 00:55 Venous blood - Right Arm Blood Culture - Preliminary Specimen has been received and culture in progress. No Growth to date. 05/29/20 00:55 Venous blood - Left Hand Blood Culture - Preliminary Specimen has been received and culture in progress. No Growth to date. Laboratory Tests 05/29/20 05/29/20 05/29/20 00:55 05:54 05:54 WBC 16.2 H Neutrophils % 85.8 H Neutrophils % (Manual) 77 H D-Dimer Ferritin C-Reactive Protein 22.99 H 05/29/20 05/29/20 05/31/20 05:54 05:54 05:45 WBC Neutrophils % Neutrophils % (Manual) D-Dimer 1.01 H Ferritin 548.41 H 857.81 H C-Reactive Protein 05/31/20 05/31/20 06/01/20 05:45 05:46 06:22 WBC Neutrophils % Neutrophils % (Manual) D-Dimer 0.91 H Ferritin C-Reactive Protein 21.60 H 13.16 H 06/01/20 06/01/20 06/02/20 06:22 06:22 09:59 WBC Neutrophils % Neutrophils % (Manual) D-Dimer 1.15 H Ferritin 769.07 H C-Reactive Protein 8.03 H 06/02/20 06/02/20 09:59 09:59 WBC Neutrophils % Neutrophils % (Manual) D-Dimer 2.49 H Ferritin 632.18 H C-Reactive Protein Hospitalist ROS - Medication Medications: Active Medications Generic Name Dose Route Start Last Admin Trade Name Freq PRN Reason Stop Dose Admin Acetaminophen 650 mg 05/29/20 03:21 06/02/20 11:55 Acetaminophen 325 Mg Tab PO 650 mg Q4H PRN Administration Headache/Fever/Mild Pain (1-3) Albuterol Sulfate 2 puff 05/30/20 06:30 06/02/20 14:30 Albuterol 200 Puff (6.7gm Inhaler) INH 2 puff [id number] WILMER Administration Alogliptin Benzoate 25 mg 05/31/20 09:00 06/02/20 09:07 Alogliptin 25 Mg Tab PO 25 mg DAILY WILMER Administration Ascorbic Acid 1,000 mg 05/29/20 09:00 06/02/20 09:07 Ascorbic Acid 500 Mg Chewable Tablet PO 1,000 mg DAILY WILMER Administration Benzonatate 100 mg 05/31/20 00:54 06/02/20 09:19 Benzonatate 100 Mg Cap PO 100 mg Q6H PRN Administration Cough Cholecalciferol 5,000 units 05/29/20 09:00 06/02/20 09:05 Cholecalciferol 1,000 Units (25 Mcg) Tab PO 5,000 units DAILY WILMER Administration Dexamethasone 8 mg 05/31/20 09:00 06/02/20 09:07 Dexamethasone 4 Mg/Ml Vial SLOW IVP 8 mg DAILY WILMER Administration Dextromethorphan Polistirix 15 mg 06/01/20 21:51 06/02/20 03:11 Dextromethorphan Polistirex 30 Mg/5 Ml (89 Ml Bottle) PO 15 mg BIDPRN PRN Administration Cough Enoxaparin Sodium 40 mg 05/29/20 09:00 06/02/20 09:05 Enoxaparin Sodium 40 Mg/0.4 Ml Syringe SC 40 mg 0900,2100 WILMER Administration Famotidine 20 mg 05/29/20 09:00 06/02/20 09:06 Famotidine 20 Mg Tab PO 20 mg BID WILMER Administration Guaifenesin/Dextromethorphan 15 ml 05/29/20 03:21 06/02/20 09:07 Guaifenesin Dm 100-10/5 Ml Udcup PO 15 ml Q4H PRN Administration Cough Azithromycin 500 mg/ Sodium 250 mls @ 250 mls/hr 05/29/20 12:00 06/02/20 12:59 Chloride IVPB 250 mls Q24HR WILMER Administration Ceftriaxone Sodium 1 gm/ 100 mls @ 200 mls/hr 05/29/20 12:00 06/02/20 11:55 Sodium Chloride IVPB 100 mls Q24HR WILMER Administration Ibuprofen 600 mg 05/31/20 17:11 05/31/20 17:23 Ibuprofen 200 Mg Tab PO 600 mg Q6H PRN Administration PAIN OR HEADACHE Insulin Human Lispro 0 units 05/29/20 03:28 05/31/20 05:52 Humalog 300 Units/3 Ml Vial SC 4 unit .MODERATE SLIDING SC PRN Administration Moderate Correctional Scale Metformin HCl 2,000 mg 05/31/20 08:00 06/02/20 09:06 Metformin 500 Mg Tab PO 2,000 mg QAM-WM WILMER Administration Miscellaneous Medication 10 mg 05/31/20 09:00 06/02/20 09:06 Empagliflozin 10 Mg Tab PO 10 mg DAILY WILMER Administration Promethazine HCl 6.25 mg 06/01/20 21:50 06/02/20 03:09 Promethazine Hcl 6.25 Mg/5 Ml Syrup PO 6.25 mg BIDPRN PRN Administration Cough Ramipril 10 mg 05/31/20 09:00 06/02/20 09:06 Ramipril 5 Mg Cap PO 10 mg DAILY WILMER Administration Rosuvastatin Calcium 40 mg 06/01/20 21:00 06/01/20 21:35 Rosuvastatin 20 Mg Tab PO 40 mg HS WILMER Administration Saccharomyces Boulardii 250 mg 05/31/20 09:00 06/02/20 09:06 Saccharomyces Boulardii 250 Mg Cap PO 250 mg DAILY WILMER Administration Sodium Chloride 10 ml 05/29/20 03:21 05/31/20 19:47 Flush - Normal Saline 10 Ml Syringe IVF 10 ml PRN PRN Administration Saline Flush Zinc Sulfate 220 mg 05/29/20 09:00 06/02/20 09:05 Zinc Sulfate 220 Mg Cap PO 220 mg DAILY WILMER Administration Zolpidem Tartrate 5 mg 05/30/20 19:00 05/30/20 23:42 Zolpidem Tartrate 5 Mg Tab PO 5 mg HSPRN PRN Administration Insomnia - Exam General Appearance: NAD, awake alert Eye: PERRL, anicteric sclera ENT: normocephalic atraumatic, no oropharyngeal lesions Neck: supple, symmetric, no JVD, no thyromegaly, no lymphadenopathy Heart: RRR, no murmur, no gallops, no rubs, normal peripheral pulses Heart - other findings: S1, S2 Respiratory: no tachypnea Respiratory - other findings: scattered rhonchi Gastrointestinal: soft, non-tender, non-distended, normal bowel sounds, no palpable masses Extremities: no cyanosis, no clubbing, no edema Skin: normal turgor, no lesions Neurological: cranial nerve grossly intact, no new deficit Musculoskeletal: normal tone, normal strength, no muscle wasting Psychiatric: normal affect, A&O x 3 Hosp A/P (1) Pneumonia due to COVID-19 virus Code(s): U07.1 - COVID-19; J12.89 - OTHER VIRAL PNEUMONIA Status: Acute Plan: Continue Zithromax/Rocephin/Remdesivir/Dexamethasone/Vit C/Zinc/O2 supple mentation (2) Acute respiratory failure with hypoxia Code(s): J96.01 - ACUTE RESPIRATORY FAILURE WITH HYPOXIA Status: Acute Plan: Continue O2 supplementation (3) DM II (diabetes mellitus, type II), controlled Code(s): E11.9 - TYPE 2 DIABETES MELLITUS WITHOUT COMPLICATIONS Status: Chronic (4) HTN (hypertension) Code(s): I10 - ESSENTIAL (PRIMARY) HYPERTENSION Status: Chronic Qualifiers: Hypertension type: essential hypertension Qualified Code(s): I10 - Essential (primary) hypertension - Plan plan discussed w/ family, continue antibiotics, clinical social worker, respiratory therapy, incentive spirometry, DVT proph w/SCDs Stable currently Continue Rocephin/Zithromax Continue Dexamethasone 8mg IV daily O2 supplementation, may need home O2 Add Florastor 250mg daily Continue Albuterol MDI AM lab: Ferritin, CRP
[2020-06-02] MEDS ORDERED: Loperamide HCl 1 MG/7.5 ML UDCUP PO PRN (18:23)
[2020-06-02] MEDS ORDERED: Temazepam 15 MG CAP PO SCH (18:30)
[2020-06-02] MEDS: Rosuvastatin 20 MG TAB PO SCH (20:17)
[2020-06-02] MEDS ORDERED: Loperamide HCl 2 MG CAP PO PRN (20:36)
[2020-06-03] MEDS: Guaifenesin DM 100-10/5 ML UDCUP PO PRN ×3 (03:27→13:00)
[2020-06-03] MEDS: Benzonatate 100 MG CAP PO PRN ×2 (03:27→13:00)
[2020-06-03] MEDS: Albuterol 200 PUFF (6.7GM INHALER) INH SCH ×4 (03:53→15:33)
[2020-06-03] MEDS: Enoxaparin Sodium 40 MG/0.4 ML SYRINGE SC SCH (07:51)
[2020-06-03] MEDS: Ramipril 5 MG CAP PO SCH (07:51)
[2020-06-03] MEDS: Empagliflozin 10 MG TAB PO SCH (07:51)
[2020-06-03] MEDS: Famotidine 20 MG TAB PO SCH (07:52)
[2020-06-03] MEDS: Saccharomyces boulardii 250 MG CAP PO SCH (07:52)
[2020-06-03] MEDS: Cholecalciferol 1,000 UNITS (25 MCG) TAB PO SCH (07:52)
[2020-06-03] MEDS: Dexamethasone 4 mg/ml Vial SLOW IVP SCH (07:52)
[2020-06-03] MEDS: metFORMIN 500 MG TAB PO SCH (07:53)
[2020-06-03] MEDS: Ascorbic Acid 500 mg Chewable Tablet PO SCH (07:53)
[2020-06-03] MEDS: Zinc Sulfate 220 MG CAP PO SCH (07:53)
[2020-06-03] MEDS: Alogliptin 25 MG TAB PO SCH (07:53)
[2020-06-03] MEDS ORDERED: cefTRIAXone\\ROCEPHIN 2 GM in Sodium Chloride 0.9% 100 ML IVPB SCH (09:00)
[2020-06-03] MEDS: Azithromycin 500 MG in Sodium Chloride 0.9% 250 ML 250 ML IVPB SCH (10:58)
[2020-06-03 16:20] VITALS: BP 121/77; TEMP 97.7
--- NOTE | 2020-06-03 16:24 | RAD ---
RADIOGRAPH CHEST 1 VIEW: Date: 06/03/20 Time: 1:59 p.m. HISTORY: 65-year-old male with COVID-19 pneumonia. COMPARISON: None. FINDINGS: There are extensive bilateral dense air space opacities/consolidations in the upper, mid and lower minh ng zones, both centrally and peripherally. No cardiomegaly or pneumothorax. IMPRESSION: Somewhat severe bilateral COVID-19 pneumonia. PATRICIA [] POS: JIN
== END 2020-06-03 17:40 | disposition home or self-care (01) | DRG 177 ==
LOC: ERS 00:10 → T4-B 02:17 → OBSVTOIN 05-31 13:23
PROVIDERS: ADMIT Student in an Organized Health Care Education/Training Program; ATTEND Student in an Organized Health Care Education/Training Program
PROC: XW033E5 Introduction of Remdesivir Anti-infective into Peripheral Vein, Percutaneous Approach, New Technology Group 5 (ICD-10-PCS; principal; 2020-05-31)
PROC: 8E0ZXY6 Isolation (ICD-10-PCS; 2020-05-31)
DX: U07.1 COVID-19 (principal); J12.89 Other viral pneumonia; J96.01 Acute respiratory failure with hypoxia; I10 Essential (primary) hypertension; E11.9 Type 2 diabetes mellitus without complications
CPT/HCPCS: 36415; 36416; 71045; 80053; 81001; 82728; 83605; 85025; 85379; 86140; 87040; 96365; 96366; 96367; 96372; 96375; 96376; 99285; G0378; J0456; J0696; J1100; J1650; J3490; J7050; Q0169